=== PATIENT | female | born 1950 | race Caucasian/White ===

== ENCOUNTER 2018-08-17 13:43 | Outpatient (CLI) | payer OTHER ==
--- NOTE | 2018-08-17 20:38 | Diagnostic Imaging Report ---
MAGUE WILCOX (ZO) - OP [facility] [id number] [id number] Report Submission Date: Aug 17, 2018 5:04:33 PM CDT Patient Study Name: RAINE POTTER Date: Aug 17, 2018 1:46:09 PM CDT Modality Type: DX Gender: F Description: WRIST 3 VIEWS OR MORE : 46 Institution: [facility] Physician: MAGUE WILCOX) - OP HISTORY: 67-year-old female with left wrist pain after injury 10 days ago. COMPARISON: None available TECHNIQUE: Three views of the left wrist were performed. FINDINGS: No evidence of fracture, subluxation, or dislocation about the left wrist. 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 There is mild osteoarthritis of the triscaphe joint and first MCP joint. IMPRESSION: 1. No acute fracture of the left wrist. 2. 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 Electronically signed on Aug 17, 2018 5:04:33 PM CDT by: Dameon ALVARADO
== END 2018-08-17 13:44 ==
LOC: RAD 13:43
PROVIDERS: ATTEND Nurse Practitioner Family
DX: M19.032 Primary osteoarthritis, left wrist (principal); S69.92XA Unspecified injury of left wrist, hand and finger(s), initial encounter
CPT/HCPCS: 73110